=== PATIENT | female | born 1965 | race Caucasian/White ===

== ENCOUNTER 2021-01-08 17:28 | Emergency (ER) | payer OTHER, SELFPAY ==
[2021-01-08 17:44] VITALS: BP 127/74; PULSE 77; RESP 16; TEMP 36.3; O2SAT 99
--- NOTE | 2021-01-08 17:58 | ED.GENADULT ---
HPI - General Adult General Chief complaint: Skin/Abscess/Foreign Body Stated complaint: pos insect sting Time Seen by Provider: 01/08/21 17:58 Source: patient and RN notes reviewed Mode of arrival: ambulatory Limitations: no limitations History of Present Illness HPI narrative: 55-year-old female presents with complaints of swelling, red, warm, and itchy to right ankle and foot for the past 2 days. Kym reports increasing swelling and redness throughout RT ankle and foot throughout the night and day. Ice, Benadryl cream, Motrin (last today at 08:00)and elevation without improvement. Kym believes she was stung by a wasp on Thursday01/06/2021. Denies new detergent, personal hygiene products or laundry detergents. No new foods or medications. No burning, bleeding, or drainage. Denies fever, chills, headaches, weakness, fatigue, myalgia, facial swelling, or tongue swelling. Denies chest pain and dyspnea. Tolerating p.o. intake. Remains active. The patient reports she has not been diagnosed with COVID-19. The patient reports she received 2 Pfizer COVID-19 vaccines. The patient reports she is not waiting for the results of a COVID-19 lab test. The patient reports she does not have a new or worsening cough or shortness of breath. The patient reports she does not have any rhinorrhea, congestion, loss of taste, sore throat, nausea, vomiting, abdominal pain, and diarrhea. Denies recent traveling. Denies concerns for COVID-19 or exposures. At this time, the patient is not suspected of having COVID-19. Some parts of this dictation were generated by voice recognition software and may contain typographical and/or grammatical inaccuracies. Related Data Home Medications Medication Instructions Recorded Confirmed estradiol cypionate mg IM 01/08/21 [Depo-Estradiol] hydrochlorothiazide 01/08/21 liothyronine mcg 01/08/21 loteprednol etabonate drp 01/08/21 testosterone cypionate mg 01/08/21 Allergies Allergy/AdvReac Type Severity Reaction Status Date / Time Penicillins Allergy Unknown Verified 01/08/21 18:28 Review of Systems Review of Systems: CONSTITUTIONAL: Denies fever, chills, sweats. EYES: Denies visual changes, redness, discharge. ENT: Denies otalgia, rhinorrhea, congestion, sore throat. CARDIOVASCULAR: Denies chest pain, palpitations, edema. RESPIRATORY: Denies dyspnea, wheezing, cough. GASTROINTESTINAL: Denies abdominal pain, nausea, vomiting, diarrhea. SKIN: Complaints swelling, red, warm, and itchy to the right ankle and foot. Denies drainage. MUSCULOSKELETAL: Denies acute back pain, joint pain, or myalgia. NEUROLOGIC: Denies numbness or focal weakness. PSYCHIATRIC: Denies anxiety or depression. All systems reviewed & are unremarkable except as noted in HPI and below. 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 Has have nerve implant done Menopause Surgical History Surgical History (Updated 01/08/21 @ 18:16 by ALBA Davila) History of brain surgery History of breast augmentation History of eye surgery Hx of appendectomy Family History Family History (Updated 01/08/21 @ 18:17 by ALBA Davila) Father Hypertension Diabetes mellitus Skin cancer Mother , October 2019 Acute myocardial infarction Cerebrovascular accident Social History Social History (Updated 01/08/21 @ 18:18 by ALBA Davila) Smoking status: Never smoker Tobacco type: cigarettes Second hand tobacco smoke exposure: No Alcohol intake: current Substance use: never Substance use type: does not use Living arrangements: with family Occupation/Education: occupation Gender identity (if verbalized by the patient): Female Comments At time of signature, agree with the nurse past medical, surgical, social, and family history. There is no relevant family history pert
== END 2021-01-08 18:28 | disposition home or self-care (01) ==
PROVIDERS: Emergency Provider Nurse Practitioner Family
DX: L03.115 Cellulitis of right lower limb (principal); S90.561A Insect bite (nonvenomous), right ankle, initial encounter; S90.861A Insect bite (nonvenomous), right foot, initial encounter; W57.XXXA Bitten or stung by nonvenomous insect and other nonvenomous arthropods, initial encounter
CPT/HCPCS: 99213; G0463